=== PATIENT | female | born 1945 | race Two or more races ===

== ENCOUNTER 2020-06-28 06:00 | Day surgery (SDC) | payer OTHER | END 2020-06-28 13:00 | disposition home or self-care (01) | LOC: AMB-ENDOS 06:00 | PROVIDERS: ATTEND Surgery | DX: D12.2 Benign neoplasm of ascending colon (principal); D12.3 Benign neoplasm of transverse colon; Z20.822 Contact with and (suspected) exposure to COVID-19 ==